=== PATIENT | female | born 1985 | race Caucasian/White ===

== ENCOUNTER 2020-02-12 10:10 | Outpatient (CLI) | payer OTHER ==
--- NOTE | 2020-02-12 10:35 | RAD ---
EXAM: 3 views of the left foot HISTORY: Left foot cellulitis COMPARISON: None FINDINGS: 3 views of the foot shows no evidence of acute fracture or dislocation. Mild diffuse soft t issue swelling is seen. No degenerative changes are present. No radiopaque foreign body is seen. IMPRESSION: No evidence of acute osseous abnormality.
== END 2020-02-12 10:11 | disposition home or self-care (01) ==
LOC: BICRAD 10:10
PROVIDERS: ATTEND Family Medicine
DX: L03.116 Cellulitis of left lower limb (principal)

== ENCOUNTER 2022-05-17 12:34 | Outpatient (CLI) | payer SELFPAY | END 2022-05-17 12:35 | disposition home or self-care (01) | LOC: LABBT 12:34 | PROVIDERS: ATTEND Orthopaedic Surgery | DX: S42.001A Fracture of unspecified part of right clavicle, initial encounter for closed fracture (principal); Z20.822 Contact with and (suspected) exposure to COVID-19 | CPT/HCPCS: 87811 ==

== ENCOUNTER 2022-05-18 10:15 | Day surgery (SDC) | payer SELFPAY ==
[2022-05-17 12:40] VITALS: BMI 25.8
[2022-05-18] MEDS ORDERED: Midazolam HCl 2 mg/2 ml Vial ONE ×2 (12:35→12:57)
[2022-05-18] MEDS ORDERED: Fentanyl 100 MCG/2 ML VIAL ONE (12:35)
[2022-05-18] MEDS ORDERED: fentaNYL Citrate/PF 100 MCG/2 ML SYRINGE ONE (12:58)
[2022-05-18] MEDS ORDERED: Lidocaine 4% Topical Sol 50 ML BOT ONE (12:58)
[2022-05-18] MEDS ORDERED: CEFAZOLIN 2 GM VIAL ONE (13:17)
[2022-05-18] MEDS ORDERED: Sodium Chloride 0.9% 100 ML ONE (13:17)
[2022-05-18] MEDS ORDERED: Ropivacaine 0.5% HCl/PF (150 MG/30 ML VIAL) ONE (13:26)
[2022-05-18] MEDS ORDERED: Dexamethasone 20 MG/5 ML VIAL ONE (13:26)
[2022-05-18] MEDS ORDERED: PROPOFOL 200 MG/20 ML VIAL ONE (13:26)
[2022-05-18] MEDS ORDERED: ePHEDrine 50 MG/ML VIAL ONE (13:26)
[2022-05-18] MEDS ORDERED: Ondansetron PF 4 MG/2 ML Vial ONE (13:26)
[2022-05-18] MEDS ORDERED: Rocuronium Bromide 10 MG/ML (10ML VIAL) ONE (13:26)
[2022-05-18] MEDS ORDERED: SUGAMMADEX SODIUM 200 MG/2 ML VIAL ONE (13:43)
== END 2022-05-18 16:40 | disposition home or self-care (01) ==
LOC: SDC 10:15
PROVIDERS: ATTEND Orthopaedic Surgery
PROC: 0PS904Z Reposition Right Clavicle with Internal Fixation Device, Open Approach (ICD-10-PCS; principal; 2022-05-18)
DX: S42.021A Displaced fracture of shaft of right clavicle, initial encounter for closed fracture (principal); I10 Essential (primary) hypertension; F17.210 Nicotine dependence, cigarettes, uncomplicated; Z88.5 Allergy status to narcotic agent; V80.919A Animal-rider injured in unspecified transport accident, initial encounter
CPT/HCPCS: 76000; C1713; C1874; J0690; J1100; J2250; J2405; J2704; J2795; J3010; J3490